=== PATIENT | female | born 1970 | race Hispanic/Latino ===

== ENCOUNTER 2020-06-06 23:32 | Emergency (ER) | payer MEDICAID, OTHER ==
[2020-06-07] MEDS ORDERED: ACETAMINOPHEN EXTRA STRENGTH 500 MG TABLET ONE (00:15)
[2020-06-07 00:21] LABS: BASOPHILS % (AUTO) 0.6 % (0.0-5.0); HEMATOCRIT 31.7 % (36-48); LYMPHOCYTES % (AUTO) 29.3 % (21.0-51.0); MEAN CORPUSCULAR HEMOGLOBIN 32.7 pg (27.0-33.0); MEAN CORPUSCULAR HGB CONC 33.4 g/dL (32.0-36.0); MEAN CORPUSCULAR VOLUME 97.8 fL (79-99); MONOCYTES % (AUTO) 9.3 % (3.0-13.0); NEUTROPHILS % (AUTO) 57.5 % (40.0-77.0); PLATELET COUNT (AUTO) 250 K/uL (130-400); RED BLOOD CELL COUNT(AUTO) 3.24 MIL/uL (4.00-5.50); RED CELL DISTRIBUTION WIDTH 11.7 % (11.0-15.5); WHITE BLOOD COUNT (AUTO) 6.8 K/uL (4.8-10.8)
[2020-06-07 00:25] LABS: CREATININE 0.8 mg/dL (0.5-1.5); POTASSIUM 4.2 mmol/L (3.5-5.1)
[2020-06-07 00:29] LABS: ALBUMIN 3.3 g/dL (3.5-5.0); BILIRUBIN,TOTAL 0.2 mg/dL (0.2-1.0); TOTAL PROTEIN, SERUM 6.2 g/dL (6.0-8.3)
[2020-06-07] MEDS ORDERED: IBUPROFEN 600 MG TABLET ONE (00:32)
[2020-06-07 00:49] LABS: APPEARANCE,URINE Clear (CLEAR); BILIRUBIN,URINE Negative (NEGATIVE); COLOR,URINE Yellow (YELLOW); GLUCOSE, URINE (UA) Negative (NEGATIVE); KETONES,URINE Negative (NEGATIVE); LEUKOCYTE ESTERASE ,URINE Large (NEGATIVE); NITRATE,URINE Negative (NEGATIVE); OCCULT BLOOD,URINE Negative (NEGATIVE); PROTEIN,URINE Negative (NEGATIVE); UROBILINOGEN,URINE 0.2 mg/dL (0.2-1.0)
[2020-06-07 01:14] LABS: RBC,URINE 0-1 /HPF (0-1)
[2020-06-07 01:15] LABS: BACTERIA,URINE Few /HPF (None Seen); MUCUS,URINE Few LPF (None Seen); TRICHOMONAS,URINE Few /LPF (None Seen)
[2020-06-07] MEDS ORDERED: CEFTRIAXONE SODIUM 1 GM ONE (01:41)
[2020-06-07] MEDS ORDERED: SODIUM CHLORIDE 0.9% 50 ML IV ONE (01:43)
== END 2020-06-07 02:35 ==
LOC: EDH 23:32
DX: E11.649 Type 2 diabetes mellitus with hypoglycemia without coma (principal); N39.0 Urinary tract infection, site not specified; K74.60 Unspecified cirrhosis of liver; I10 Essential (primary) hypertension; F32.9 Major depressive disorder, single episode, unspecified; F41.9 Anxiety disorder, unspecified; Z85.3 Personal history of malignant neoplasm of breast; Z88.6 Allergy status to analgesic agent; Z79.899 Other long term (current) drug therapy
CPT/HCPCS: 36415; 80053; 81001; 82550; 82948; 84484; 85025; 87088; 93005; 96374; 99284; J0696

== ENCOUNTER 2020-06-07 23:38 | Emergency (ER) | payer OTHER ==
[2020-06-07] MEDS ORDERED: KETOROLAC TROMETHAMINE 60 MG/2 ML VIAL ONE (23:56)
== END 2020-06-08 00:47 | disposition home or self-care (01) ==
LOC: EDH 23:38
DX: M06.9 Rheumatoid arthritis, unspecified (principal); K74.60 Unspecified cirrhosis of liver; E11.9 Type 2 diabetes mellitus without complications; I10 Essential (primary) hypertension; F41.9 Anxiety disorder, unspecified; F32.9 Major depressive disorder, single episode, unspecified; Z85.3 Personal history of malignant neoplasm of breast; Z88.6 Allergy status to analgesic agent; Z87.891 Personal history of nicotine dependence; Z79.899 Other long term (current) drug therapy
CPT/HCPCS: 82948; 96372; 99283; J1885